=== PATIENT | female | born 1970 | race Caucasian/White ===

== ENCOUNTER → 2016-12-29 | Outpatient (CLI) | payer MEDICAID ==
[~2016-12-29] MED LIST: ASPIRIN325 MG PO; B-COMPLEX PLUS1 EACH PO; BENADRYL50 MG PO; BUTRANS1 EAC1 TOP; COLACE100 MG PO; CYMBALTA30 MG PO; DILAUDID4 MG PO; FEOSOL325 MG PO; FOLIC ACID1 MG PO; LOVENOX 4040 MG/0.4 SUB-Q; LYRICA225 MG PO; MILK OF MA400 MG/5 M PO; MOBIC7.5 MG PO; NORCO 5-325 TA1 EACH PO; PEPCID20 MG PO; TYLENOL325 MG PO; ZYRTEC10 MG PO
== END | disposition disaster alternative care site (69) ==
LOC: GRAD 14:00
DX: M25.561 Pain in right knee (principal); M71.21 Synovial cyst of popliteal space [Baker], right knee; M85.861 Other specified disorders of bone density and structure, right lower leg

== ENCOUNTER 2017-05-06 13:53 | Day surgery (SDC) | payer MEDICAID ==
[~2017-05-06] VITALS: Ht 157.5 cm; Wt 110.2 kg
--- NOTE | ~2017-05-06 | OR ---
[facility]GE[facility] 46 Y [address] ROOM: [place] [address] LOCATION: [facility] [place] ADMIT DATE: 05/06/2017 OR/Procedure Report DISCHARGE DATE: 05/06/2017 FAMILY PHYSICIAN: Sebastian Shin MD ATTENDING PHYSICIAN: Jonny Gallegos SURGEON: Jonny Gallegos MD ANTENNA SPECIALIST: Shivam Harrington PA-C. DATE OF PROCEDURE: 05/06/2017 PREOPERATIVE DIAGNOSES: 1. Right knee medial meniscus tear. 2. Nondisplaced medial tibial plateau fracture. POSTOPERATIVE DIAGNOSES: 1. Right knee medial meniscus tear. 2. Nondisplaced medial tibial plateau fracture. PROCEDURE: 1. Right knee arthroscopy. 2. Partial medial and lateral meniscectomies. 3. Extensive debridement and medial, lateral and patellofemoral compartment joint chondroplasties. 4. Arthroscopically-aided fixation of medial tibial plateau fracture using bone cement. 5. Use of intraoperative fluoroscopy, less than 1 hour. ANESTHESIA: General endotracheal anesthesia. FLUIDS: See Anesthesia report. ESTIMATED BLOOD LOSS: Minimal. TOURNIQUET: Right proximal thigh 250 mmHg. SPECIMEN: None. COMPLICATIONS: None. DISPOSITION: Stable in PACU. COUNTS: All counts correct. IMPLANT: Include Myra sub-chondroplasty bone cementing system. INDICATIONS: Ms. Greer is a pleasant 46-year-old female who underwent the PATIENT'S NAME: MICHAEL GREER [facility] AGE: 46 Y [address] ROOM: [place] [address] LOCATION: [facility] [place] ADMIT DATE: 05/06/2017 OR/Procedure Report DISCHARGE DATE: 05/06/2017 FAMILY PHYSICIAN: Sebastian Shin MD ATTENDING PHYSICIAN: Jonny Gallegos noted procedures above. The risks, benefits, and alternatives of pursuing surgical intervention were discussed with the patient in detail. I marked the right lower extremity indicating the correct surgical site. Informed consent was obtained, and the patient elected to proceed with surgery. Anesthesia was consulted for their perioperative evaluation of the patient. OPERATIVE REPORT IN DETAIL: The patient was brought from the holding area to the operating room. A time-out was performed. General endotracheal anesthesia was administered. The right lower extremity was then prepped and draped in a sterile fashion. Final time-out was performed. Antibiotics were administered. The right lower extremity was exsanguinated using an Esmarch and a tourniquet was inflated to 250 mmHg. I began by performing a knee arthroscopy. I introduced my arthroscope and performed a diagnostic arthroscopy. There were partial medial and lateral meniscal tears in the mid midsubstance region. There was extensive synovitis present and advanced degenerative changes, both the medial and lateral and patellofemoral compartments. There was a loose body in the medial gutter. The lateral gutter was clear. The ACL and the PCL appeared intact. I introduced my shaver. I performed a partial medial and lateral meniscectomies. I performed an extensive debridement of the hypertrophic fat pad and synovitis present. I removed the loose body with the shaver. I performed chondroplasty in all 3 compartments. I introduced intraoperative fluoroscopy. I identified the medial and tibial plateau with a Orchard elevator. I then used a 15 blade knife to make an incision through skin and subcutaneous tissue, muscle fascia down to the medial plateau. I then introduced my pin into the plateau. I confirmed its position fluoroscopically. I injected my cement and confirmed its radiopacity in the medial tibial plateau in the subchondral region. A second-look arthroscopy indicated no extravasation of the cement into the joint. Final fluoroscopic images revealed successful arthroscopically aided fixation of the medial tibia plateau fracture and placement of radiopaque bone cement. All the wounds were copiously irrigated and closed. A local anesthetic was injected. The patient was transferred from the operative table onto a stretcher and extubated. She was brought to the recovery room in stable condition. PATIENT'S NAME: MICHAEL GREER [facility] AGE: 46 Y [address] ROOM: [place] [address] LOCATION: [facility] [place] ADMIT DATE: 05/06/2017 OR/Procedure Report DISCHARGE DATE: 05/06/2017 FAMILY PHYSICIAN: Sebastian Shin MD ATTENDING PHYSICIAN: Jonny Gallegos No intraoperative complications were noted. Of note, my PA, Shivam Harrington PA-C, played an integral role in the intraoperative care of this patient. This included preoperative positioning, intraoperative expert retraction, and closing and dressing functions. PLAN: The patient will be weightbearing as tolerated in the right lower extremity. Postoperative pain control will be in the form of Percocet and IV morphine as needed for pain. The patient will be discharged home from the PACU, provided she meets the PACU and discharge criteria. She has instruction to begin physical therapy on postoperative day 1. She will see me in the office in 2 weeks for first postoperative visit. MD CHARLIE ADAIR/nancy /[id number] d: 05/06/17 2344 t: 05/07/17 1713, OPERATIVE SUMMARY
[~2017-05-06 13:53] MED LIST changes: -ASPIRIN325 MG PO
[2017-05-06] MEDS ORDERED: ASPIRIN325 MG PO (19:24)
== END 2017-05-06 20:05 | disposition disaster alternative care site (69) ==
LOC: GSDC 13:53
PROC: 0SBC4ZZ Excision of Right Knee Joint, Percutaneous Endoscopic Approach (ICD-10-PCS; principal; 2017-05-06)
PROC: 0QS Lower Bones, Reposition (ICD-10-PCS; 2017-05-06)
DX: S83.241A Other tear of medial meniscus, current injury, right knee, initial encounter (principal); S82.141A Displaced bicondylar fracture of right tibia, initial encounter for closed fracture; K21.9 Gastro-esophageal reflux disease without esophagitis; G47.30 Sleep apnea, unspecified; F41.9 Anxiety disorder, unspecified; M06.9 Rheumatoid arthritis, unspecified; M79.7 Fibromyalgia; Z98.51 Tubal ligation status; F17.210 Nicotine dependence, cigarettes, uncomplicated; Z79.899 Other long term (current) drug therapy; Z79.891 Long term (current) use of opiate analgesic
CPT/HCPCS: J0690; J1100; J2001; J2405; J3010; J7120